=== PATIENT | female | born 1970 ===

== ENCOUNTER 2018-11-20 21:52 | Emergency (ER) | payer SELFPAY ==
[2018-11-21] MEDS ORDERED: DELTASONE PO ONE (00:29)
[2018-11-21] MEDS ORDERED: TESSALON PERLES PO ONE (00:30)
--- NOTE | 2018-11-21 00:33 | Emergency Department Report ---
- General Chief Complaint: Upper Respiratory Infection Stated Complaint: WHEEZING/COUGHING/CHEST TIGHTNESS Time Seen by Provider: 11/21/18 00:28 Source: patient Mode of arrival: Ambulatory Limitations: No Limitations - History of Present Illness Initial Comments: 48-year-old female presents to the emergency room complaining of cough and wheezing for the last 4 days. Patient denies any fever chills nausea vomiting. Patient reports she has been taking [id number] Mucinex and TheraFlu. Patient reports a past medical history of diabetes hypertension and is currently taking metformin 500 mg sustained release and losartan. Patient currently does not have a primary care provider. MD Complaint: cough -: days(s) (4) Severity scale (0 -10): 0 Consistency: intermittent Improves With: nothing Associated Symptoms: nasal congestion, cough. denies: fever, chills, myalgias, headache, chest pain, nausea, vomiting, diarrhea Treatments Prior to Arrival: "cold medicine" - Related Data Previous Rx's Medication Instructions Recorded Last Taken Type Benzonatate [Tessalon Perles] 100 mg PO Q8HR PRN #15 capsule 11/21/18 Unknown Rx Cetirizine HCl [ZyrTEC] 10 mg PO QDAY #15 capsule 11/21/18 Unknown Rx Allergies Allergy/AdvReac Type Severity Reaction Status Date / Time benzyl alcohol Allergy Unknown Verified 11/20/18 22:15 ED Review of Systems ROS: Stated complaint: WHEEZING/COUGHING/CHEST TIGHTNESS Other details as noted in HPI Comment: All other systems reviewed and negative Respiratory: cough, wheezing ED Past Medical Hx - Past Medical History Previous Medical History?: Yes Hx Hypertension: Yes Hx Diabetes: Yes - Surgical History Past Surgical History?: No - Social History Smoking Status: Never Smoker Substance Use Type: None - Medications Home Medications: Home Medications Medication Instructions Recorded Confirmed Last Taken Type Benzonatate [Tessalon Perles] 100 mg PO Q8HR PRN #15 capsule 11/21/18 Unknown Rx Cetirizine HCl [ZyrTEC] 10 mg PO QDAY #15 capsule 11/21/18 Unknown Rx ED Physical Exam - General Limitations: No Limitations General appearance: alert, in no apparent distress - Head Head exam: Present: atraumatic, normocephalic - Eye Eye exam: Present: normal appearance - ENT ENT exam: Present: mucous membranes moist, TM's normal bilaterally - Expanded ENT Exam Expanded Throat exam: Negative: tonsillar erythema, tonsillomegaly, tonsillar exudate - Neck Neck exam: Present: normal inspection - Respiratory Respiratory exam: Present: normal lung sounds bilaterally. Absent: respiratory distress - Cardiovascular Cardiovascular Exam: Present: regular rate, normal rhythm. Absent: systolic murmur, diastolic murmur, rubs, gallop - GI/Abdominal GI/Abdominal exam: Present: soft, normal bowel sounds - Extremities Exam Extremities exam: Present: normal inspection - Back Exam Back exam: Present: normal inspection - Neurological Exam Neurological exam: Present: alert, oriented X3 - Psychiatric Psychiatric exam: Present: normal affect, normal mood - Skin Skin exam: Present: warm, dry, intact, normal color. Absent: rash ED Course Vital Signs 11/20/18 22:15 Temperature 98 F Pulse Rate 80 Respiratory 20 Rate Blood Pressure 165/78 O2 Sat by Pulse 95 Oximetry ED Medical Decision Making - Radiology Data Radiology results: report reviewed FINAL REPORT PROCEDURE: XR CHEST ROUTINE 2V TECHNIQUE: PA and lateral chest radiographs were obtained. CPT 85820 HISTORY: coughing and wheezing COMPARISON: No prior studies are available for comparison. FINDINGS: Heart: Normal. Mediastinum/Vessels: Normal. Lungs/Pleural space: Normal. Bony thorax: No acute osseous abnormality. Other: IMPRESSION: Normal examination. Transcribed By: [facility] Dictated By: MICHAEL SAMPSON MD Electronically Authenticated By: MICHAEL SAMPSON MD Signed Date/Time: 11/21/18105 DD/ 6 TD/TT: 11/21/18106 - Medical Decision Making Patient has been evaluated by this provider fast track. Chest x-ray ordered prednisone exceeding milligrams, Tessalon Perles 100 mg Albuterol inhaler has been ordered. Chest x-ray was negative for any pneumonia. Patient be discharged home on Tessalon Perles and Zyrtec. Patient has been referred to outpatient medicine Dr. Baca. Critical care attestation.: If time is entered above; I have spent that time in minutes in the direct care of this critically ill patient, excluding procedure time. ED Disposition Clinical Impression: Cough Disposition: DC-01 TO HOME OR SELFCARE Is pt being admited?: No Does the pt Need Aspirin: No Condition: Stable Instructions: Antitussives (By mouth) Additional Instructions: Please take cough suppressant as prescribed. Please take Zyrtec antihistamine daily for the next 2 weeks. If his symptoms persist or gets worse please follow up with her primary care provider. Prescriptions: Benzonatate [Tessalon Perles] 100 mg PO Q8HR PRN #15 capsule PRN Reason: Cough Cetirizine HCl [ZyrTEC] 10 mg PO QDAY #15 capsule Referrals: MARCELA BACA MD [Primary Care Provider] - 3-5 Days Forms: Work/School Release Form(ED)
--- NOTE | 2018-11-21 01:06 | XRay Report ---
FINAL REPORT PROCEDURE: XR CHEST ROUTINE 2V TECHNIQUE: PA and lateral chest radiographs were obtained. CPT 48857 HISTORY: coughing and wheezing COMPARISON: No prior studies are available for comparison. FINDINGS: Heart: Normal. Mediastinum/Vessels: Normal. Lungs/Pleural space: Normal. Bony thorax: No acute osseous abnormality. Other: IMPRESSION: Normal examination.
[2018-11-21 01:57] VITALS: BP 162/81
== END 2018-11-21 01:53 | disposition home or self-care (01) ==
LOC: ED 21:52
DX: R05 Cough (principal); R06.2 Wheezing; I10 Essential (primary) hypertension; E11.9 Type 2 diabetes mellitus without complications; Z91.048 Other nonmedicinal substance allergy status
CPT/HCPCS: 71046; 99283; J7512